=== PATIENT | male | born 1990 | race Caucasian/White ===

== ENCOUNTER 2016-07-01 20:48 | Emergency (ER) | payer SELFPAY ==
[~2016-07-01] VITALS: Ht 180.3 cm; Wt 95.3 kg
[2016-07-01 20:52] VITALS: BP 142/81
--- NOTE | 2016-07-01 21:00 | NUR ---
BIBA BLS TO ER BED 2
--- NOTE | 2016-07-01 21:00 | NUR ---
Bob lyn in [facility] - 07/02/16 at 0037 by [facility] WON CARMEN TO ER BED 2
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
[2016-07-02] MEDS ORDERED: KETOROLAC 60 MG/2 ML VIAL IM ONE (00:05)
--- NOTE | 2016-07-02 00:30 | NUR ---
Patient discharged with v/s stable. Written and verbal after care instructions given and explained. Patient alert, oriented and verbalized understanding of instructions. Ambulatory with steady gait. All questions addressed prior to discharge. ID band removed. Patient advised to follow up with PMD. Rx of MOTRIN 800MG PO, NORCO 5MG-325MG PO given. Patient educated on indication of medication including possible reaction and side effects. Opportunity to ask questions provided and answered.
[2016-07-02 00:32] VITALS: BP 133/74
== END 2016-07-02 00:30 | disposition home or self-care (01) ==
LOC: MED 21:37
DX: S13.4XXA Sprain of ligaments of cervical spine, initial encounter (principal); V89.2XXA Person injured in unspecified motor-vehicle accident, traffic, initial encounter; Y93.89 Activity, other specified; Y92.89 Other specified places as the place of occurrence of the external cause; Y99.8 Other external cause status
CPT/HCPCS: 70450; 72125; 96372; 99284; J1885